=== PATIENT | male | born 1975 | race Native Hawaiian/Other Pacific Islander ===

== ENCOUNTER 2020-04-27 14:18 | Outpatient (CLI) | payer OTHER | END 2020-04-27 21:46 | disposition home or self-care (01) | LOC: RAD 14:18 | PROVIDERS: ATTEND Nurse Practitioner Family | DX: M54.17 Radiculopathy, lumbosacral region (principal) ==

== ENCOUNTER 2020-08-15 11:56 | Outpatient (CLI) | payer OTHER | END 2020-08-15 19:34 | disposition home or self-care (01) | LOC: LABW 11:56 | PROVIDERS: ATTEND Internal Medicine | DX: E11.9 Type 2 diabetes mellitus without complications (principal); I10 Essential (primary) hypertension; E78.2 Mixed hyperlipidemia; E66.9 Obesity, unspecified | CPT/HCPCS: 36415; 82947; 83519; 84681; 86341 ==

== ENCOUNTER 2021-02-26 18:24 | Emergency (ER) | payer OTHER ==
[~2021-02-26] VITALS: Ht 167.6 cm; Wt 111.1 kg
[2021-02-26 19:30] VITALS: BP 157/84; TEMP 99.4
== END 2021-02-26 20:02 | disposition home or self-care (01) ==
LOC: ED 19:21
DX: M25.551 Pain in right hip (principal); M79.604 Pain in right leg; G89.29 Other chronic pain
CPT/HCPCS: 96372; 99283; J1885; J2930

== ENCOUNTER 2021-03-05 14:29 | Emergency (ER) | payer OTHER ==
[~2021-03-05] VITALS: Ht 167.6 cm; Wt 120.2 kg
[2021-03-05 15:52] VITALS: BP 128/88; TEMP 98
== END 2021-03-05 15:54 | disposition home or self-care (01) ==
LOC: ED 14:29
DX: E11.649 Type 2 diabetes mellitus with hypoglycemia without coma (principal); Z79.4 Long term (current) use of insulin; V89.2XXA Person injured in unspecified motor-vehicle accident, traffic, initial encounter; Y92.89 Other specified places as the place of occurrence of the external cause
CPT/HCPCS: 96372; 99283; J1885

== ENCOUNTER 2021-04-05 17:14 | Outpatient (CLI) | payer OTHER | END 2021-04-05 20:24 | disposition home or self-care (01) | LOC: RAD 17:14 | PROVIDERS: ATTEND Nurse Practitioner Primary Care | DX: M25.551 Pain in right hip (principal) ==

== ENCOUNTER 2021-08-18 10:34 | Outpatient (CLI) | payer OTHER | END 2021-08-18 18:55 | disposition home or self-care (01) | LOC: LABW 10:34 | PROVIDERS: ATTEND Nurse Practitioner Family | DX: E11.65 Type 2 diabetes mellitus with hyperglycemia (principal) | CPT/HCPCS: 82043; 82570 ==

== ENCOUNTER 2021-08-21 15:27 | Outpatient (CLI) | payer OTHER | END 2021-08-21 19:04 | disposition home or self-care (01) | LOC: US 15:27 | PROVIDERS: ATTEND Nurse Practitioner Family | DX: E11.65 Type 2 diabetes mellitus with hyperglycemia (principal); R80.8 Other proteinuria ==

== ENCOUNTER 2022-03-05 16:00 | Emergency (ER) | payer OTHER ==
[~2022-03-05] VITALS: Ht 167.6 cm; Wt 112.9 kg
[2022-03-05 17:13] LABS: PLATELET COUNT 203 K/uL (142-355)
[2022-03-05 17:22] LABS: PARTIAL THROMBOPLASTIN TIME 25.9 SECONDS (24.5-33.6)
[2022-03-05 17:28] LABS: POTASSIUM 2.9 mmol/L (3.6-5.2)
[2022-03-05 21:20] VITALS: BP 124/83; TEMP 98.2
== END 2022-03-05 21:20 | disposition home or self-care (01) ==
LOC: ED 16:00
PROVIDERS: Emergency Medicine Emergency Medical Services
DX: R07.89 Other chest pain (principal); E11.649 Type 2 diabetes mellitus with hypoglycemia without coma; Z79.4 Long term (current) use of insulin; E83.42 Hypomagnesemia
CPT/HCPCS: 36415; 80053; 82948; 83735; 84484; 85027; 85379; 85610; 85730; 93005; 96361; 96365; 96366; 96375; 99283; 99284; J7060

== ENCOUNTER 2022-05-11 09:14 | Outpatient (CLI) | payer OTHER | END 2022-05-11 19:13 | disposition home or self-care (01) | LOC: LABW 09:14 → RESP 09:14 | PROVIDERS: ATTEND Nurse Practitioner Family | DX: R53.83 Other fatigue (principal); I10 Essential (primary) hypertension | CPT/HCPCS: 36415; 82550; 82553; 84484 ==

== ENCOUNTER 2022-05-17 07:21 | Outpatient (CLI) | payer OTHER ==
[~2022-05-17] VITALS: Ht 167.6 cm; Wt 117.0 kg
== END 2022-05-17 19:30 | disposition home or self-care (01) ==
LOC: NM 07:21
PROVIDERS: ATTEND Nurse Practitioner Family
DX: I10 Essential (primary) hypertension (principal); Z79.899 Other long term (current) drug therapy
CPT/HCPCS: A9500; J2785

== ENCOUNTER 2022-12-01 21:29 | Emergency (ER) | payer OTHER ==
[~2022-12-01] VITALS: Ht 167.6 cm; Wt 117.9 kg
[2022-12-01 21:34] VITALS: TEMP 98.5
[2022-12-01 22:13] LABS: POTASSIUM 4.4 mmol/L (3.6-5.2)
[2022-12-01 22:36] LABS: PLATELET COUNT 242 K/uL (142-355)
[2022-12-02] VITALS: BP 96/54
== END 2022-12-02 | disposition home or self-care (01) ==
LOC: ED 21:29
PROVIDERS: Family Medicine
DX: R55 Syncope and collapse (principal); R53.83 Other fatigue; F17.210 Nicotine dependence, cigarettes, uncomplicated
CPT/HCPCS: 36415; 80053; 80307; 81002; 85027; 96360; 99284

== ENCOUNTER 2022-12-25 12:25 | Outpatient (CLI) | payer OTHER | END 2022-12-25 22:06 | disposition home or self-care (01) | LOC: US 12:25 | PROVIDERS: ATTEND Family Medicine | DX: E78.2 Mixed hyperlipidemia (principal); F44.89 Other dissociative and conversion disorders ==